=== PATIENT | male | born 1950 | race Caucasian/White ===

== ENCOUNTER 2016-12-25 23:58 | Inpatient (IN) | payer MEDICARE ==
--- NOTE | ~2016-12-25 | CR63 ---
[facility] A Service of [facility] RADIOLOGY TEXT RESULTS PATIENT: JENI ADAMES LOCATION: [facility] [address] : [birth year] UNIT #: [id number] AGE: [address]: Hernandez Cardenas MD SEX: M ORDER DR: [id number] [facility] [address] [facility] [place], [place] [address] [id number] I MR#: [id number] Acc #: [id number] NAME: JENI ADAMES : 1950 SEX: M STUDY DATE/TIME: 12/28/2016 8:35 UNIT: [facility] ROOM: [facility] STUDY DESCRIPTION: CR Chest 2 View Attending Physician: Hernandez Cardenas M.D. Ordering Physician: Hernandez Cardenas M.D. Primary Care Physician: Primary Care Physician No MEDICAL IMAGING REPORT This report is preliminary unless electronic signature is present EXAM Chest 2 views 12/28/2016 INDICATION 66-year-old male with COPD, shortness of air, pneumonia for 5 days. No known injury. Tobacco abuse over 40 years. TECHNIQUE Frontal and lateral views of the chest were performed. Correlation is made with chest CT 12/27/2016. FINDINGS Cardiac silhouette within normal limits. The vascularity is unremarkable. The lungs are emphysematous. There is biapical fibrosis and scarring. No effusion. No pneumothorax identified. IMPRESSION Advanced emphysematous changes in the lungs. No effusion, dense consolidation or pneumothorax. Biapical scarring. Dictated by... Cesario Moreno M.D. THIS IS AN ELECTRONICALLY VERIFIED REPORT Cesario Moreno M.D. at 12/28/2016 2:[address]/anisha TD: 12/28/2016 14:13 JOB #: [id number] MEDICAL IMAGING REPORT [facility] A Service of [facility] RADIOLOGY TEXT RESULTS PATIENT: JENI ADAMES LOCATION: [facility] 578-01 : [birth year] UNIT #: [id number] AGE: [address]: Hernandez Cardenas MD SEX: M ORDER DR: COPY
--- NOTE | ~2016-12-25 | CR72 ---
[facility] A Service of [facility] RADIOLOGY TEXT RESULTS PATIENT: JENI ADAMES LOCATION: [facility] 578-01 : [birth year] UNIT #: [id number] AGE: [address]: Hernandez Cardenas MD SEX: M ORDER DR: [id number] [facility] [address] [facility]. [place], [place] [address] [id number] I MR#: [id number] Acc #: [id number] NAME: JENI ADAMES : 1950 SEX: M STUDY DATE/TIME: 12/25/2016 21:13 UNIT: [facility] ROOM: [address] STUDY DESCRIPTION: CR Chest Single View Portable Attending Physician: Hernandez Cardenas M.D. Ordering Physician: Anthony Wayne D.O. Primary Care Physician: No Primary Care Physician MEDICAL IMAGING REPORT This report is preliminary unless electronic signature is present EXAM Portable chest HISTORY Shortness of air, cough x3 days FINDINGS Portable view of the chest demonstrates pulmonary hyperinflation, hyperlucency compatible with underlying emphysema. No definite acute airspace disease or consolidation. No effusions. Heart, mediastinum and bony thorax unremarkable. Dictated by... Beverley Aranda M.D. THIS IS AN ELECTRONICALLY VERIFIED REPORT Beverley Aranda M.D. at 12/26/2016 6:33 PM [place] TD: 12/26/2016 10:00 JOB #: [id number] MEDICAL IMAGING REPORT COPY
--- NOTE | ~2016-12-25 | DS ---
Unit #: [id number] #: [id number] Patient: JENI ADAMES [id number] [address] [place], [place] [address] [id number] I MR#: [id number] NAME: JENI ADAMES ROOM: 578 Age: 66 Sex: M Admission Date: 12/26/2016 : 1950 Discharge Date: 12/29/2016 Attending Physician: Hernandez Cardenas M.D. Primary Care Physician: No Primary Care Physician DISCHARGE SUMMARY ADMITTING DIAGNOSIS Shortness of breath. FINAL DIAGNOSIS Acute hypoxic respiratory failure secondary to chronic obstructive pulmonary disease exacerbation. HISTORY OF PRESENT ILLNESS Patient is a 66-year-old man with a past medical history significant for chronic smoking, presented to the hospital with a chief complaint of cough and shortness of breath. He was noted to have COPD exacerbation. Dr. Peterson with pulmonary was consulted as he was slow to improve. He was started on steroids and breathing treatments, and he was slow to improve and he is slowly improving today. He was on nicotine patches here. I counseled him on multiple occasions to quit smoking. He will be discharged home on a tapering dose of oral prednisone and he was instructed to follow with pulmonary and primary care as an outpatient. PHYSICAL EXAMINATION VITAL SIGNS: On the day of discharge his temperature was 98.1, pulse rate 93, respiratory rate 20, blood pressure 121/79. GENERAL: The patient is thin, alert and oriented x3, lying in the bed, no acute distress. HEENT: Normocephalic and atraumatic. No icterus. PERRLA. Extraocular muscles intact. NECK: Neck is supple. No JVD. HEART: S1, S2, regular rate and rhythm. CHEST: Bilaterally air entry. Clear to auscultation. ABDOMEN: Soft, nontender. EXTREMITIES: No edema. Normal peripheral pulses. DISCHARGE MEDICATIONS 1. Prednisone tapering dose 60 mg p.o. daily for three days, followed by 30 mg p.o. daily for three days; followed by 10 mg p.o. daily for three days. 2. Zithromax 500 mg p.o. for two more days. 3. Combivent inhaler. FOLLOWUP He is instructed to follow up with his primary care. Total time spent in his care 28 minutes. Unit #: [id number] #: [id number] Patient: JENI ADAMES Dictated by... Dexter Stewart/francisco TD: 01/01/2017 08:55 JOB #: [id number] DISCHARGE SUMMARY X X DISCHARGE SUMMARY
--- NOTE | ~2016-12-25 | EKG ---
PATIENT: JENI ADAMES UNIT #: [id number] Ventricular Rate: 122 BPM Atrial Rate: 122 BPM P-R Interval: 168 ms QRS Duration: 70 ms Q-T Interval: 292 ms QTC Calculation(Bezet): 416 ms P [place]: -23 degrees Calculated R [place]: 143 degrees Calculated T [place]: -12 degrees Diagnosis Line: Sinus tachycardia Diagnosis Line: Right axis deviation Diagnosis Line: Septal infarct (cited on or before 28-MAY-2013) Diagnosis Line: Abnormal ECG Diagnosis Line: When compared with ECG of 28-MAY-2013 10:12, Diagnosis Line: Fusion complexes are no longer Present Diagnosis Line: Vent. rate has increased BY 43 BPM Diagnosis Line: T wave inversion now evident in Inferior leads Diagnosis Line: Confirmed by ANEESH GRAYSON MD ([id number]) on Diagnosis Line: 12/26/2016 8:19:02 AM INTERPRETING MD: KENAN CHAPMAN
--- NOTE | ~2016-12-25 | HP ---
Unit #: [id number] #: [id number] Patient: JENI ADAMES [id number] [address] [place], [place] [address] [id number] I MR#: [id number] NAME: JENI ADAMES ROOM: 32190 Age: 66 Sex: M Admission Date: 12/26/2016 : 1950 Attending Physician: Karen Tang M.D. Primary Care Physician: No Primary Care Physician HISTORY AND PHYSICAL CHIEF COMPLAINT Dyspnea. HISTORY This pleasant 66-year-old male with an unremarkable past medical history is admitted for shortness of breath. The patient states that he was well until three days ago when he developed a deep nonproductive cough with increasing shortness of breath and bronchospasm. Notes occasional palpitations. He presented to this emergency department where his chest x-ray was negative. In the ER he was treated with bronchodilators along with Solu-Medrol. Denies chest pain with the above unless he coughs. Has been smoking since age 18. PAST MEDICAL HISTORY Unremarkable. ALLERGIES None. HOME MEDICATIONS Tylenol. FAMILY HISTORY CAD and CVA. SOCIAL HISTORY The patient lives with his family. He has been smoking at least 1/2 pack per day of tobacco since age 18. Drinks occasional alcohol. REVIEW OF SYSTEMS Notable for shortness of breath, perhaps a low grade fever, nonproductive cough, wheezing, occasional palpitations, tobacco use, some chronic weight loss. All of other systems were reviewed and are negative. PHYSICAL EXAMINATION GENERAL: Pleasant thin, 66-year-old male currently in no acute distress. VITAL SIGNS: Temperature 98.1, pulse 128, respirations 16, blood pressure 121/81. HEENT: Eyes - PERRLA. Extraocular muscles are intact. Pharynx is benign. NECK: Supple without adenopathy or thyromegaly. CHEST: Diminished breath sounds with increased ID ratio and end expiratory wheezes. Unit #: [id number] #: [id number] Patient: JENI ADAMES CARDIAC: Normal S1 and S2. Slightly tachycardic without murmur. ABDOMEN: Bowel sounds are present. No hepatosplenomegaly, tenderness, or masses. EXTREMITIES: Without clubbing, cyanosis or edema. Pedal pulses are present. NEUROLOGIC: Patient is awake, alert, and oriented. Cranial nerves are intact. Equal strength throughout. DIAGNOSTIC STUDIES ADMISSION LABS: Hematocrit is 43, white blood count is 15.1, MCV is 81. Cardiac markers negative. SMA 12 - sodium 132, chloride 97. BNP normal. IMAGING STUDIES: Chest x-ray - hyperinflation consistent with COPD. CARDIOLOGY STUDIES: EKG - sinus tachycardia, rate 120, right axis deviation. ASSESSMENT 1. Bronchitis with likely COPD exacerbation. 2. Tobacco use. 3. Sinus tachycardia. PLANS 1. Zithromax, mucolytics, steroids, and DuoNeb. 2. DVT and gastritis prophylaxis. 3. Smoking cessation. 4. Further workup if not responding to above. 5. Check thyroid function test in the morning. Dictated by Dexter Chávez/ts TD: 12/26/2016 05:22 JOB #: [id number] HISTORY AND PHYSICAL X Karen Tang MD X HISTORY AND PHYSICAL
--- NOTE | ~2016-12-25 | CO ---
Unit #: [id number] #: [id number] Patient: JENI ADAMES [id number] [address] [place], [place] [address] [id number] I MR#: [id number] NAME: JENI ADAMES ROOM: 578 Age: 66 Sex: M Admission Date: 12/26/2016 : 1950 Attending Physician: Hernandez Cardenas M.D. Primary Care Physician: No Primary Care Physician CONSULTATION REPORT CHIEF COMPLAINT Shortness of breath. HISTORY OF PRESENT ILLNESS The patient is basically a 66-year-old male with a past medical history of no medical problems, presents with a complaint of cough, shortness of breath, increasing sputum production for the last two to three days. Symptoms have been getting worse. I am seeing him at the bedside. Denies any nausea, vomiting, diarrhea. PHYSICAL EXAMINATION VITAL SIGNS: Temperature 98, pulse 87, respirations 12, blood pressure 130/70. NEUROLOGICAL: Awake, alert, oriented. No neuro deficit. HEENT: PERRLA. NECK: Supple. No JVD. CHEST: Bilateral air entry, bilateral mild rhonchi. GI: Nontender, soft. Bowel sounds positive. EXTREMITIES: No edema. SKIN: No rashes, no ulcers. LYMPHATIC: No lymphadenopathy. DIAGNOSTIC STUDIES Labs and imaging have been reviewed. PAST MEDICAL HISTORY None. SOCIAL HISTORY One pack smoker per day. Denies alcohol or drug abuse. FAMILY HISTORY Coronary artery disease, CVA. HOME MEDICATIONS Tylenol. ASSESSMENT AND PLAN 1. Acute exacerbation of chronic obstructive pulmonary disease. 2. Acute on chronic hypoxic respiratory failure. 3. Acute bronchitis. Plan is to continue patient on oxygen, bronchodilator, IV steroids, IV antibiotic. Will get a non-contrast CT of the chest to assess for lung Unit #: [id number] #: [id number] Patient: JENI ADAMES parenchyma. Will need exercise oximetry. Will follow sputum cultures. Patient will be closely monitored. Will also get a flu test as well. Please see orders for detailed plans. Dictated by... Dexter Santana TD: 12/28/2016 05:45 JOB #: [id number] CONSULTATION REPORT X Ravindra Peterson MD CONSULTATION REPORT
--- NOTE | ~2016-12-25 | CT57 ---
[facility] A Service of [facility] RADIOLOGY TEXT RESULTS PATIENT: JENI ADAMES LOCATION: [facility] : [birth year] UNIT #: [id number] AGE: [address]: Hernandez Cardenas MD SEX: M ORDER DR: [id number] [address] [address] [facility]. [place], [place] [address] [id number] I MR#: [id number] #: [id number] NAME: JENI ADAMES : 1950 SEX: M STUDY DATE/TIME: 12/27/2016 17:56 UNIT: [facility] ROOM: [facility] STUDY DESCRIPTION: CT Chest Wo Cont Attending Physician: Hernandez Cardenas M.D. Ordering Physician: Ravindra Peterson M.D. Primary Care Physician: No Primary Care Physician MEDICAL IMAGING REPORT This report is preliminary unless electronic signature is present EXAM CT chest 12/27/2016. INDICATIONS Shortness of air for [address] of the thorax without contrast. Coronal and sagittal reconstructions were obtained. This CT exam was performed with one or more of the following radiation dose reduction techniques: Automatic exposure control, adjustment of mA and/or kV according to patient size, and iterative reconstruction. COMPARISON Chest radiograph dated 12/25/2016 and 05/28/2013. FINDINGS There is severe emphysema. No focal airspace opacities. The central airways are patent. The thoracic aorta is normal in caliber. There is no pericardial or pleural effusion. Limited images of the upper abdomen were obtained. There are a few benign cysts in the liver. No acute osseous abnormalities. IMPRESSION Severe emphysema. No acute findings in the chest. Dictated by... Ronaldo Jaramillo M.D. [facility] A Service of [facility] RADIOLOGY TEXT RESULTS PATIENT: JENI ADAMES LOCATION: [facility] 5705-15 : [birth year] UNIT #: [id number] AGE: [address]: Hernandez Cardenas MD SEX: M ORDER DR: THIS IS AN ELECTRONICALLY VERIFIED REPORT Ronaldo Jaramillo M.D. at 12/28/2016 10:29 AM CARTER/leonel TD: 12/28/2016 09:16 JOB #: [id number] MEDICAL IMAGING REPORT COPY
--- NOTE | ~2016-12-25 | A ---
[facility] Nutrition Therapy DATE: 12/27/16 Patient: JENI ADAMES Physician: LLOYD Address: [address] [place] [address] Room/Bed: [address] [place] [address], Zip: [place] [address] Admit Date: 12/26/16 Date of : [birth year] Height: 6 0 Weight: 140 63.8 NUTRITIONAL ASSESSMENT: REASON: Low BMI 66 yo male admitted for shortness of breath, exacerbated COPD PMH: COPD Anthropometrics: HT: 6'0", WT: 63.2 kg (139#), BMI: 18.9, 78%IBW Labs: Na+ 133, Gluc 116 Meds: Pepcid, NaCl, Zofran I/O & Bowel function: 1600/875, LBM 12/25 Skin Integrity: Scab (R hubbard), purple spots (BLE) Estimated Nutrition Needs: Increased energy and protein Assessment: Chart reviewed, events noted. Pt reports wt fluctuates, stating UBW 142#. Pt reports poor appetite for months, eating 1 - 2 meals/d. Pt reports no dentures or teeth, but can tolerate a regular diet. RD encouraged frequent small meals throughout the day, as well as the importance of consuming adequate calories and protein. RD encouraged Ensure BID, pt agreed. Pt reported no diet questions at this time. RD to follow. Dx: Inadequate energy intake RT poor appeteite AEB 18.9 BMI, 78%IBW, pt report above. Increased nutrient needs RT Dx, PMH AEB 18.9 BMI, 78%IBW. Intervention: 1. Ensure BID 2. Heart healthy diet Monitoring, Evaluation and Goals: 1. PO intake; provide and consume ~80-100% of estimated energy needs 2. Weight; promote gradual weight gain, prevent unintentional weight loss 3. Labs; WNL Recommendations: 1. Order Ensure BID 2. Add 6 small meals to current diet order to better facilitate PO intake 3. Consider adding appetite stimulant such as Megace to stimulate PO intake [facility] Nutrition Therapy DATE: 12/27/16 Patient: JENI ADAMES Physician: LLOYD Address: [address] [place] [address] Room/Bed: [address] [place] [address], Zip: [place] [address] Admit Date: 12/26/16 Date of : [birth year] Height: 6 0 Weight: 140 63.8 4. Appreciate family and staff to encourage adequate calorie, protein, and fluid intake Pt is at mild-moderate nutritional risk. RD to f/u per protocol. Respectfully, SHANTEL NYE, Rayon Coner Luis Coy MS, RD, LD [facility] cc: client file
[2016-12-25 23:19] LABS: BASOPHIL# 0.1 X10e3 (0-0.3); BASOPHIL% 0.6 % (0-2.5); EOSINOPHIL# 0.1 X10e3 (0-0.7); EOSINOPHIL% 0.6 % (0.0-7.0); HEMATOCRIT 42.9 % (38.0-50.0); HEMOGLOBIN 14.4 gm/dL (13.0-16.0); LYMPHOCYTE# 1.2 X10e3 (1.0-3.5); LYMPHOCYTE% 8.3 % (17.0-45.0); MEAN CELL VOLUME 80.8 FL (83-96); MEAN CORPUSCULAR HEMOGLOBIN 27.1 PG (28-34); MEAN CORPUSCULAR HGB CONC 33.5 g/dL (30-36); MEAN PLATELET VOLUME 6.7 FL (6.5-11.5); MONOCYTE# 1.3 X10e3 (0-1.0); MONOCYTE% 8.7 % (3.0-12.0); NEUTROPHIL# 12.3 X10e3 (1.5-7.1); NEUTROPHIL% 81.8 % (40-75); PLATELET COUNT 253 X10e3 (140-420); RED BLOOD COUNT 5.31 X10e (3.90-5.60); RED CELL DISTRIBUTION WIDTH 13.6 % (11.0-15.5); WHITE BLOOD COUNT 15.1 X10e3 (4.0-10.5)
[2016-12-25 23:20] LABS: DIFF IND YES
[2016-12-25 23:30] LABS: POC - CKMB 1.7 ng/mL (0.0-7.9); POC - TROPONIN <0.05 ng/mL (<=0.05)
[2016-12-25 23:37] LABS: ANISOCYTOSIS SL; PLATELET ESTIMATE NORMAL (NORMAL)
[2016-12-25 23:38] LABS: ALBUMIN SERUM 4.2 g/dL (3.5-5.0); ALKALINE PHOSPHATASE 51 U/L (32-92); ALT (SGPT) 25 U/L (10-40); AST (SGOT) 31 U/L (10-42); BILIRUBIN, DIRECT 0.2 mg/dL (0.0-0.2); BILIRUBIN,INDIRECT 0.6 mg/dL (0.0-0.9); BILIRUBIN,TOTAL 0.8 mg/dL (0.2-2.0); BLOOD UREA NITROGEN 9 mg/dL (9-23); CALCIUM SERUM 8.9 mg/dL (8.4-10.2); CARBON DIOXIDE 26 mmol/L (22-31); CHLORIDE 97 mmol/L (100-111); CREATININE SERUM 0.9 mg/dL (0.6-1.4); GLOM FILT RATE Estimated ABOVE60 mL/min (>60); GLUCOSE FASTING 100 mg/dL (70-110); PROTEIN TOTAL SERUM 6.9 g/dL (6.0-8.3); SODIUM 132 mmol/L (135-145)
[~2016-12-25 23:58] MED LIST: ALBUTEROL17 GM INH; AZITHROMYCIN250 MG PO; PREDNISONE PO
[2016-12-26 07:29] LABS: BASOPHIL% 0.1 % (0-2.5); HEMATOCRIT 38.5 % (38.0-50.0); HEMOGLOBIN 12.9 gm/dL (13.0-16.0); LYMPHOCYTE# 0.5 X10e3 (1.0-3.5); MEAN CELL VOLUME 81.9 FL (83-96); MEAN CORPUSCULAR HEMOGLOBIN 27.4 PG (28-34); MEAN CORPUSCULAR HGB CONC 33.5 g/dL (30-36); MEAN PLATELET VOLUME 7.4 FL (6.5-11.5); MONOCYTE# 0.2 X10e3 (0-1.0); MONOCYTE% 1.3 % (3.0-12.0); NEUTROPHIL% 94.6 % (40-75); PLATELET COUNT 230 X10e3 (140-420); RED CELL DISTRIBUTION WIDTH 13.7 % (11.0-15.5); WHITE BLOOD COUNT 11.7 X10e3 (4.0-10.5)
[2016-12-26 07:30] LABS: DIFF IND NO
[2016-12-26 07:51] LABS: BLOOD UREA NITROGEN 12 mg/dL (9-23); CALCIUM SERUM 8.4 mg/dL (8.4-10.2); CARBON DIOXIDE 26 mmol/L (22-31); CHLORIDE 99 mmol/L (100-111); GLOM FILT RATE Estimated ABOVE60 mL/min (>60); GLUCOSE FASTING 170 mg/dL (70-110); POTASSIUM 4.4 mmol/L (3.5-5.1); SODIUM 131 mmol/L (135-145)
[2016-12-26 08:02] LABS: THYROID STIMULATING HORMONE 0.59 uIU/ml (0.34-5.60)
[2016-12-26 08:08] LABS: FREE THYROXIN (T4) 0.87 ng/dL (0.58-1.64)
[2016-12-27 08:28] LABS: HEMATOCRIT 37.7 % (38.0-50.0); HEMOGLOBIN 12.5 gm/dL (13.0-16.0); MEAN CELL VOLUME 81.5 FL (83-96); MEAN CORPUSCULAR HEMOGLOBIN 26.9 PG (28-34); MEAN PLATELET VOLUME 7.2 FL (6.5-11.5); RED BLOOD COUNT 4.63 X10e (3.90-5.60); RED CELL DISTRIBUTION WIDTH 13.6 % (11.0-15.5)
[2016-12-27 08:29] LABS: WHITE BLOOD COUNT 18.5 X10e3 (4.0-10.5)
[2016-12-27 08:32] LABS: BLOOD UREA NITROGEN 16 mg/dL (9-23); BUN/CREATININE RATIO 22.85; CALCIUM SERUM 8.6 mg/dL (8.4-10.2); CARBON DIOXIDE 27 mmol/L (22-31); CHLORIDE 100 mmol/L (100-111); CREATININE SERUM 0.7 mg/dL (0.6-1.4); GLOM FILT RATE Estimated ABOVE60 mL/min (>60); GLUCOSE FASTING 116 mg/dL (70-110); POTASSIUM 4.8 mmol/L (3.5-5.1); SODIUM 133 mmol/L (135-145)
[2016-12-28 06:29] LABS: HEMATOCRIT 35.3 % (38.0-50.0); HEMOGLOBIN 11.7 gm/dL (13.0-16.0); MEAN CELL VOLUME 82.2 FL (83-96); MEAN CORPUSCULAR HEMOGLOBIN 27.3 PG (28-34); MEAN CORPUSCULAR HGB CONC 33.2 g/dL (30-36); RED BLOOD COUNT 4.29 X10e (3.90-5.60); RED CELL DISTRIBUTION WIDTH 13.9 % (11.0-15.5); WHITE BLOOD COUNT 15.2 X10e3 (4.0-10.5)
[2016-12-28 07:02] LABS: BLOOD UREA NITROGEN 15 mg/dL (9-23); BUN/CREATININE RATIO 21.42; CALCIUM SERUM 8.8 mg/dL (8.4-10.2); CARBON DIOXIDE 30 mmol/L (22-31); CHLORIDE 100 mmol/L (100-111); CREATININE SERUM 0.7 mg/dL (0.6-1.4); GLOM FILT RATE Estimated ABOVE60 mL/min (>60); GLUCOSE FASTING 125 mg/dL (70-110); POTASSIUM 5.1 mmol/L (3.5-5.1); SODIUM 136 mmol/L (135-145)
[2016-12-28 16:43] LABS: INFLUENZA A NEG (NEG); INFLUENZA B NEG (NEG)
[2016-12-29 05:22] LABS: HEMATOCRIT 35.9 % (38.0-50.0); HEMOGLOBIN 11.9 gm/dL (13.0-16.0); MEAN CELL VOLUME 81.6 FL (83-96); MEAN CORPUSCULAR HEMOGLOBIN 27.1 PG (28-34); MEAN CORPUSCULAR HGB CONC 33.2 g/dL (30-36); MEAN PLATELET VOLUME 6.7 FL (6.5-11.5); RED BLOOD COUNT 4.39 X10e (3.90-5.60); RED CELL DISTRIBUTION WIDTH 13.7 % (11.0-15.5); WHITE BLOOD COUNT 11.9 X10e3 (4.0-10.5)
[2016-12-29 05:57] LABS: BLOOD UREA NITROGEN 14 mg/dL (9-23); CALCIUM SERUM 8.3 mg/dL (8.4-10.2); CARBON DIOXIDE 29 mmol/L (22-31); CHLORIDE 99 mmol/L (100-111); CREATININE SERUM 0.8 mg/dL (0.6-1.4); GLOM FILT RATE Estimated ABOVE60 mL/min (>60); GLUCOSE FASTING 102 mg/dL (70-110); MAGNESIUM 1.9 mg/dL (1.6-3.0); POTASSIUM 4.4 mmol/L (3.5-5.1); SODIUM 131 mmol/L (135-145)
[2016-12-29] MEDS ORDERED: NICOTINE TRANSD14 MG TOP (16:39)
[2016-12-29] MEDS ORDERED: HUMIBID-LA600 MG PO (16:41)
[2016-12-29] MEDS ORDERED: ZITHROMAX500 MG PO (16:42)
[2016-12-29] MEDS ORDERED: COMBIVENT U/D3 M2 INH (16:44)
[2016-12-29] MEDS ORDERED: PREDNISONE10 MG PO (16:45)
[2016-12-29] MEDS ORDERED: SYMBICORT INH (16:46)
== END 2016-12-29 18:10 | disposition home or self-care (01) | DRG 190 ==
LOC: CED 23:58 → CEDOF 12-26 01:30 → C5C 12-26 11:42
PROVIDERS: Emergency Medicine; Internal Medicine
PROC: B246ZZ4 Ultrasonography of Right and Left Heart, Transesophageal (ICD-10-PCS; principal; 2016-12-26)
DX: J44.0 Chronic obstructive pulmonary disease with (acute) lower respiratory infection (principal); J96.01 Acute respiratory failure with hypoxia; J44.1 Chronic obstructive pulmonary disease with (acute) exacerbation; Z71.6 Tobacco abuse counseling; I36.1 Nonrheumatic tricuspid (valve) insufficiency; E87.6 Hypokalemia
CPT/HCPCS: 36415; 71010; 71020; 71250; 80048; 80076; 82553; 82947; 83735; 83880; 84439; 84443; 84484; 85025; 85027; 87804; 93005; 93306; 94640; 94644; 94760; 96374; 99285; J0456; J1650; J2405; J2920; J2930